=== PATIENT | male | born 1975 | race Caucasian/White ===

== ENCOUNTER 2018-04-10 10:49 | Emergency (ER) | payer MEDICAID ==
[~2018-04-10] VITALS: Ht 180.3 cm; Wt 90.7 kg
--- NOTE | 2018-04-10 10:49 | NUR ---
SUDDEN ONSET OF LEFT FLANK PAIN, DENIES HEMATURIA, +DYSURIA
[2018-04-10] MEDS ORDERED: KETOROLAC TROMETHAMINE 15 MG/ML VIAL ONE (11:58)
[2018-04-10] MEDS ORDERED: IV NS 0.9% 1,000 ML BAG IV ONE ×2 (12:00→12:30)
[2018-04-10] MEDS ORDERED: KETOROLAC TROMETHAMINE INJ 30 MG/ML VIAL IV ONE (12:00)
[2018-04-10 12:09] LABS: BASOPHILS % (AUTO) 0.3 % (0.0-2.0); EOSINOPHILS % (AUTO) 0.7 % (0.0-6.0); HEMATOCRIT 47 % (39-51); HEMOGLOBIN 16.1 g/dL (13.5-17.5); LYMPHOCYTES # (AUTO) 1.3 /CMM (0.8-4.8); LYMPHOCYTES % (AUTO) 11.4 % (20.0-44.0); MEAN CORPUSCULAR HGB CONC 35 g/dl (31.0-36.0); MEAN CORPUSCULAR VOLUME 87 fL (80-96); MONOCYTES # (AUTO) 0.9 /CMM (0.1-1.30); MONOCYTES % (AUTO) 8.5 % (2.0-12.0); NEUTROPHILS # (AUTO) 8.8 /CMM (1.8-8.9); NEUTROPHILS % (AUTO) 79.1 % (43.0-81.0); PLATELET COUNT (AUTO) 234 /CMM (150-450); RDW COEFFICIENT OF VARIATION 12.6 (11.5-15.0); WHITE BLOOD COUNT (AUTO) 11.1 K/uL (4.3-11.0)
[2018-04-10 12:18] LABS: CALCIUM, SERUM 8.9 mg/dL (8.5-10.1); CREATININE 1.4 mg/dL (0.6-1.3); POTASSIUM 3.8 mmol/L (3.5-5.1)
[2018-04-10 13:07] LABS: APPEARANCE,URINE Clear (CLEAR); BILIRUBIN,URINE Negative (NEGATIVE); BLOOD, URINE Large Ery/uL (NEGATIVE); KETONES,URINE Trace (NEGATIVE); LEUKOCYTE ESTERASE ,URINE Negative (NEGATIVE); NITRITE, URINE Negative (NEGATIVE); PH,URINE 5.5 (5.0-8.0); PROTEIN,URINE Negative (NEGATIVE); UGLUCOSE Negative (NEGATIVE); UROBILINOGEN,URINE 0.2 EU/dL (0.2)
[2018-04-10 13:09] LABS: COLOR,URINE Dark Yellow (YELLOW)
[2018-04-10 13:26] LABS: RBC,URINE 51-80 /HPF (0-2); WBC,URINE 0-3 /HPF (0-3)
[2018-04-10 13:27] LABS: BACTERIA,URINE Few /HPF (None Seen); SQUAMOUS EPITHELIAL CELL,UR Rare /HPF (None Seen)
[2018-04-10 13:50] VITALS: BP 129/90
--- NOTE | 2018-04-10 13:54 | NUR ---
IV removed. Catheter intact and site benign. Pressure and 4x4 applied to site. No bleeding noted.Patient discharged to home in stable condition. Written and verbal after care instructions given. Patient verbalizes understanding of instruction.
== END 2018-04-10 14:10 | disposition home or self-care (01) ==
LOC: ER 10:50
DX: N23 Unspecified renal colic (principal); F17.200 Nicotine dependence, unspecified, uncomplicated; Z98.890 Other specified postprocedural states
CPT/HCPCS: 36415; 80048; 81001; 85025; 96361; 96374; 99284; A4606; J1885; J7030 ×2; Z7610; 81000-TC

== ENCOUNTER 2023-03-01 19:43 | Emergency (ER) | payer MEDICAID ==
[~2023-03-01] VITALS: Ht 180.3 cm; Wt 104.3 kg
[2023-03-01 19:52] VITALS: BP 162/85
--- NOTE | 2023-03-01 19:56 | NUR ---
BIBWIFE. RIGHT LOWER CHEST PAIN 2ND TO COUGH AND CONGESTION STARTED AFTER SNEEZING HARD. AXO3 AMBULATORY.
[2023-03-01] MEDS ORDERED: BENZ-13 PO (21:30)
== END 2023-03-01 21:40 | disposition home or self-care (01) ==
LOC: ER 19:45
DX: J40 Bronchitis, not specified as acute or chronic (principal); J06.9 Acute upper respiratory infection, unspecified; Z72.0 Tobacco use; Z79.899 Other long term (current) drug therapy
CPT/HCPCS: 71045-TC

== ENCOUNTER 2024-05-30 11:47 | Emergency (ER) | payer MEDICAID, OTHER ==
[~2024-05-30] VITALS: Ht 180.3 cm; Wt 113.9 kg
[~2024-05-30 11:47] MED LIST: BENZ-13 PO
[2024-05-30] MEDS ORDERED: GUAIFENESIN/D-METHORPHAN HB 5 ML UDC ONE (12:50)
[2024-05-30] MEDS: GUAIFENESIN/D-METHORPHAN HB 5 ML UDC PO ONE (12:53)
[2024-05-30] MEDS ORDERED: AZIT250T13 PO (13:02)
[2024-05-30] MEDS ORDERED: BENZ-13 PO (13:02)
[2024-05-30 13:10] VITALS: BP 112/84; TEMP 98.1; O2SAT 97
== END 2024-05-30 13:10 | disposition home or self-care (01) ==
LOC: ER 11:57
DX: J18.9 Pneumonia, unspecified organism (principal); F17.200 Nicotine dependence, unspecified, uncomplicated; Z98.890 Other specified postprocedural states; Z79.899 Other long term (current) drug therapy
CPT/HCPCS: 71045-TC